=== PATIENT | male | born 1955 | race African-American/Black ===

== ENCOUNTER 2017-10-30 05:40 | Inpatient (IN) ==
[2017-10-30 07:23] LABS: Basophils # 0.1 10*3/uL (0.0-0.2); Eosinophils # 0.2 10*3/uL (0.0-0.87); Eosinophils % 2.8 % (0.00-10.9); Hematocrit 30.2 VOL% (42.0-52.0); Hemoglobin 9.4 GM/DL (14.0-18.0); Immature Granulocytes % 0.5 %; Immature Granulocytes Absolute 0.03 #; Lymphocytes % 16.7 % (21.2-54.2); Mean Corpuscular HGB Conc 31.1 GM/DL (32-36); Mean Corpuscular Hemoglobin 21 PG (27-34); Mean Corpuscular Volume 68.5 FL (87-102); Monocytes # 0.7 10*3/uL (0.11-0.8); Monocytes % 10.8 % (1.7-12.7); NRBC # 0.05 10*3/uL; Neutrophils # 4.1 10*3/uL (1.4-7.4); Neutrophils % 68.2 % (38.7-73.9); Platelet Count 170 T/CUMM (130-400); Red Blood Count 4.41 MC/CUMM (3.8-5.5); Red Cell Distribution Width 19.9 % (9.3-17.3)
[2017-10-30] MEDS ORDERED: FAMOTIDINE 20 MG TABLET PO ONE (07:29)
[2017-10-30] MEDS ORDERED: SODIUM CHLORIDE 0.9% 250 ML IV SCH (07:30)
[2017-10-30 07:49] LABS: Hypochromasia 2+; Microcytosis 2+; Polychromasia Slight; Target Cells Slight
[2017-10-30] MEDS ORDERED: FAMOTIDINE 20 MG TABLET ONE (07:49)
[2017-10-30] MEDS ORDERED: ISOSULFAN BLUE 5 ML VIAL SUBCUT ONE (07:50)
[2017-10-30] MEDS ORDERED: TISSUE ADHESIVE 1 EACH APPLICATOR TOP ONE (07:50)
[2017-10-30 07:59] LABS: Albumin 3.6 G/DL (3.4-5.0); Bilirubin,Total 0.4 MG/DL (0.2-1.0); Calcium 8.8 MG/DL (8.5-10.1); Osmolality,Calculated 285.4 MOS/KG (273-304); Potassium 3.7 MMOL/L (3.5-5.1); Total Protein 6.7 G/DL (6.4-8.3)
[2017-10-30] MEDS ORDERED: ceFAZolin 1,000 MG VIAL ONE (08:50)
[2017-10-30] MEDS ORDERED: MORPHINE 2 MG/1 ML SYRINGE IV PRN (10:15)
[2017-10-30] MEDS ORDERED: ONDANSETRON 4 MG/2 ML VIAL IV PRN (10:15)
[2017-10-30] MEDS ORDERED: SUGAMMADEX 200 MG/2 ML VIAL IV ONE (10:25)
[2017-10-30 10:44] LABS: ABG Base Excess 3.5 MMOL/L (-2.5-2.5); ABG HCO3 27.4 MMOL/L (20-26); ABG Oxygen Saturation 89.4 % (95-100); ABG PCO2 59.4 MM HG (35-48); ABG PH 7.323 (7.35-7.45); ABG PO2 66.4 MM HG (80-95); ABG TCO2 28.5 MMOL/L (23-27); Glucose Heart Surgery 142 MG/DL (74-106); Hematocrit Heart Surgery 29.5 PERCENT (42-52); Hemoglobin Heart Surgery 9.5 G/DL (14.0-18.0)
[2017-10-30] MEDS ORDERED: CALCIUM GLUCONATE 2,000 MG in SODIUM CHLORIDE 0.9% 50 ML IV ONE (10:47)
[2017-10-30] MEDS ORDERED: SEVOFLURANE 1 UNIT/15 MINUTE INH ONE (11:01)
[2017-10-30] MEDS ORDERED: PROPOFOL 200 MG/20 ML VIAL IV ONE (11:01)
[2017-10-30] MEDS ORDERED: fentaNYL 100 MCG/2 ML VIAL ONE ×2 (11:02)
[2017-10-30] MEDS ORDERED: ONDANSETRON 4 MG/2 ML VIAL ONE (11:02)
[2017-10-30] MEDS ORDERED: MIDAZOLAM 2 MG/2 ML VIAL ONE (11:02)
[2017-10-30] MEDS ORDERED: ROCURONIUM 100 MG/10 ML VIAL IV ONE (11:03)
[2017-10-30] MEDS ORDERED: NEOSTIGMINE 10 MG/10 ML VIAL ONE (11:03)
[2017-10-30] MEDS ORDERED: GLYCOPYRROLATE 0.4 MG/2 ML VIAL ONE (11:03)
[2017-10-30] MEDS ORDERED: GLUCAGON 1 MG VIAL IM PRN (12:13)
[2017-10-30] MEDS ORDERED: DEXTROSE 50% 25 GM/50 ML VIAL IV PRN (12:13)
[2017-10-31] MEDS ORDERED: CALCIUM GLUCONATE 2,000 MG in SODIUM CHLORIDE 0.9% 100 ML IV ONE ×2 (09:00→19:37)
[2017-11-01] MEDS ORDERED: CALCIUM GLUCONATE IV ONE (08:36)
[2017-11-01] MEDS ORDERED: SODIUM CHLORIDE 0.9% IV ONE (08:36)
[2017-11-01] MEDS: SEVELAMER CARBONATE 800 MG TABLET PO SCH ×2 (11:48→16:50)
[2017-11-01] MEDS: ASPIRIN EC 325 MG TABLET PO SCH (11:48)
[2017-11-01] MEDS: METOPROLOL SUCCINATE XL 100 MG TABLET PO SCH (11:48)
[2017-11-01] MEDS ORDERED: CINACALCET 30 MG TABLET PO SCH (12:00)
[2017-11-01] MEDS: glipiZIDE 10 MG TABLET PO SCH (16:50)
[2017-11-01] MEDS ORDERED: CALCIUM GLUCONATE 3,000 MG in SODIUM CHLORIDE 0.9% 100 ML IV ONE (19:36)
[2017-11-01] MEDS: GABAPENTIN 300 MG CAPSULE PO SCH (21:23)
[2017-11-01] MEDS: INSULIN GLARGINE 100 UNIT/ML SUBCUT SCH (21:23)
[2017-11-01] MEDS: cloNIDine 0.1 MG TABLET PO SCH (21:23)
[2017-11-02] MEDS ORDERED: SODIUM CHLORIDE 0.9% IV ONE (08:00)
[2017-11-02] MEDS ORDERED: CALCIUM GLUCONATE IV ONE (08:00)
[2017-11-02] MEDS: GABAPENTIN 300 MG CAPSULE PO SCH ×2 (09:05→20:50)
[2017-11-02] MEDS: glipiZIDE 10 MG TABLET PO SCH ×2 (09:05→16:53)
[2017-11-02] MEDS: ASPIRIN EC 325 MG TABLET PO SCH (09:05)
[2017-11-02] MEDS: cloNIDine 0.1 MG TABLET PO SCH ×2 (09:05→20:50)
[2017-11-02] MEDS: SEVELAMER CARBONATE 800 MG TABLET PO SCH ×3 (09:06→16:53)
[2017-11-02] MEDS: METOPROLOL SUCCINATE XL 100 MG TABLET PO SCH (09:06)
[2017-11-02] MEDS ORDERED: CALCIUM GLUCONATE 3,000 MG in SODIUM CHLORIDE 0.9% 100 ML IV ONE (19:35)
[2017-11-02] MEDS: INSULIN GLARGINE 100 UNIT/ML SUBCUT SCH (20:50)
[2017-11-03] MEDS ORDERED: CALCIUM GLUCONATE 3,000 MG in SODIUM CHLORIDE 0.9% 100 ML IV ONE (07:00)
[2017-11-03] MEDS: SEVELAMER CARBONATE 800 MG TABLET PO SCH ×3 (08:31→16:51)
[2017-11-03] MEDS: cloNIDine 0.1 MG TABLET PO SCH ×2 (08:32→22:03)
[2017-11-03] MEDS: GABAPENTIN 300 MG CAPSULE PO SCH ×2 (08:32→22:03)
[2017-11-03] MEDS: METOPROLOL SUCCINATE XL 100 MG TABLET PO SCH (08:32)
[2017-11-03] MEDS: glipiZIDE 10 MG TABLET PO SCH ×2 (08:32→16:51)
[2017-11-03] MEDS: ASPIRIN EC 325 MG TABLET PO SCH (08:33)
[2017-11-03] MEDS ORDERED: CALCITRIOL 0.5 MCG CAPSULE PO SCH ×2 (13:30→16:42)
[2017-11-03] MEDS ORDERED: CALCIUM (CARBONATE) 500 MG TABLET PO SCH (21:00)
[2017-11-03] MEDS ORDERED: CALCIUM CARBONATE CHEW 500 MG TABLET PO SCH (21:00)
[2017-11-03] MEDS: CALCIUM (CARBONATE) 500 MG TABLET PO SCH (22:04)
[2017-11-03] MEDS: INSULIN GLARGINE 100 UNIT/ML SUBCUT SCH (22:05)
[2017-11-04] MEDS ORDERED: CALCIUM GLUCONATE 2,000 MG in SODIUM CHLORIDE 0.9% 100 ML IV ONE (06:36)
[2017-11-04] MEDS: SEVELAMER CARBONATE 800 MG TABLET PO SCH ×3 (08:30→16:16)
[2017-11-04] MEDS: glipiZIDE 10 MG TABLET PO SCH ×2 (08:30→16:16)
[2017-11-04] MEDS: GABAPENTIN 300 MG CAPSULE PO SCH ×2 (08:31→22:49)
[2017-11-04] MEDS: cloNIDine 0.1 MG TABLET PO SCH ×2 (08:31→22:49)
[2017-11-04] MEDS: CALCIUM (CARBONATE) 500 MG TABLET PO SCH ×3 (08:31→22:49)
[2017-11-04] MEDS: ASPIRIN EC 325 MG TABLET PO SCH (08:32)
[2017-11-04] MEDS: METOPROLOL SUCCINATE XL 100 MG TABLET PO SCH (08:32)
[2017-11-04] MEDS ORDERED: DOXERCALCIFEROL 4 MCG/2 ML VIAL IV PRN (09:28)
[2017-11-04] MEDS: INSULIN GLARGINE 100 UNIT/ML SUBCUT SCH (22:48)
[2017-11-04] MEDS ORDERED: CALCIUM GLUCONATE 3,000 MG in SODIUM CHLORIDE 0.9% 100 ML IV ONE (22:59)
[2017-11-05] MEDS: CALCIUM (CARBONATE) 500 MG TABLET PO SCH ×5 (06:00→20:57)
[2017-11-05] MEDS ORDERED: CALCIUM GLUCONATE 2,000 MG in SODIUM CHLORIDE 0.9% 100 ML IV ONE (07:50)
[2017-11-05] MEDS: GABAPENTIN 300 MG CAPSULE PO SCH ×2 (10:36→20:58)
[2017-11-05] MEDS: cloNIDine 0.1 MG TABLET PO SCH ×3 (10:36→20:58)
[2017-11-05] MEDS: glipiZIDE 10 MG TABLET PO SCH ×2 (10:36→17:57)
[2017-11-05] MEDS: ASPIRIN EC 325 MG TABLET PO SCH ×2 (10:36→13:08)
[2017-11-05] MEDS: SEVELAMER CARBONATE 800 MG TABLET PO SCH ×4 (10:36→17:57)
[2017-11-05] MEDS: METOPROLOL SUCCINATE XL 100 MG TABLET PO SCH ×2 (10:37→13:08)
[2017-11-05] MEDS: CALCITRIOL 0.5 MCG CAPSULE PO SCH ×2 (10:37→13:07)
[2017-11-05] MEDS: INSULIN GLARGINE 100 UNIT/ML SUBCUT SCH (20:57)
[2017-11-06] MEDS: CALCIUM (CARBONATE) 500 MG TABLET PO SCH ×5 (00:45→21:08)
[2017-11-06] MEDS ORDERED: CALCIUM GLUCONATE 2,000 MG in SODIUM CHLORIDE 0.9% 100 ML IV ONE ×2 (01:00→13:30)
[2017-11-06] MEDS: SEVELAMER CARBONATE 800 MG TABLET PO SCH ×3 (08:21→17:26)
[2017-11-06] MEDS: glipiZIDE 10 MG TABLET PO SCH ×2 (08:22→17:26)
[2017-11-06] MEDS: ASPIRIN EC 325 MG TABLET PO SCH (08:22)
[2017-11-06] MEDS: METOPROLOL SUCCINATE XL 100 MG TABLET PO SCH (08:22)
[2017-11-06] MEDS: GABAPENTIN 300 MG CAPSULE PO SCH ×2 (08:22→21:07)
[2017-11-06] MEDS: CALCITRIOL 0.5 MCG CAPSULE PO SCH (08:22)
[2017-11-06] MEDS: cloNIDine 0.1 MG TABLET PO SCH ×2 (08:23→21:07)
[2017-11-06] MEDS ORDERED: DOXERCALCIFEROL 4 MCG/2 ML VIAL IV PRN (16:57)
[2017-11-06] MEDS: INSULIN GLARGINE 100 UNIT/ML SUBCUT SCH (21:06)
[2017-11-07] MEDS ORDERED: CALCIUM GLUCONATE 2,000 MG in SODIUM CHLORIDE 0.9% 100 ML IV ONE (04:00)
[2017-11-07] MEDS: METOPROLOL SUCCINATE XL 100 MG TABLET PO SCH (08:21)
[2017-11-07] MEDS: GABAPENTIN 300 MG CAPSULE PO SCH (08:21)
[2017-11-07] MEDS: ASPIRIN EC 325 MG TABLET PO SCH (08:21)
[2017-11-07] MEDS: cloNIDine 0.1 MG TABLET PO SCH ×2 (08:22→16:05)
[2017-11-07] MEDS: glipiZIDE 10 MG TABLET PO SCH ×2 (08:23→16:05)
[2017-11-07] MEDS: CALCIUM (CARBONATE) 500 MG TABLET PO SCH ×2 (08:23→16:05)
[2017-11-07] MEDS: CALCITRIOL 0.5 MCG CAPSULE PO SCH (08:23)
[2017-11-07] MEDS: SEVELAMER CARBONATE 800 MG TABLET PO SCH ×3 (08:23→16:05)
[2017-11-07 17:14] VITALS: BP 165/83
== END 2017-11-07 18:18 | disposition home or self-care (01) | DRG 674 ==
LOC: N.SDSINP 05:40 → N.OR 05:40 → N.SDSINP 05:46 → N.5E 12:02 → EDSTATUS 13:30
PROVIDERS: ADMIT Surgery; ATTEND Surgery

== ENCOUNTER 2018-04-14 16:59 | Inpatient (IN) ==
[2018-04-14 17:45] LABS: Basophils # 0.1 10*3/uL (0.0-0.2); Basophils % 0.9 % (0.0-0.8); Eosinophils # 0.1 10*3/uL (0.0-0.87); Hematocrit 31.1 VOL% (42.0-52.0); Hemoglobin 9.8 GM/DL (14.0-18.0); Immature Granulocytes % 0.7 %; Immature Granulocytes Absolute 0.04 #; Lymphocytes # 0.8 10*3/uL (1.4-4.0); Lymphocytes % 14.5 % (21.2-54.2); Mean Corpuscular HGB Conc 31.5 GM/DL (32-36); Mean Corpuscular Hemoglobin 21 PG (27-34); Mean Corpuscular Volume 67.5 FL (87-102); Monocytes # 0.6 10*3/uL (0.11-0.8); NRBC # 0.06 10*3/uL; Neutrophils # 3.8 10*3/uL (1.4-7.4); Neutrophils % 70.9 % (38.7-73.9); Platelet Count 167 T/CUMM (130-400); Red Blood Count 4.61 MC/CUMM (3.8-5.5); Red Cell Distribution Width 18.5 % (9.3-17.3); White Blood Count 5.4 T/CUMM (4-12)
[2018-04-14 18:04] LABS: Albumin 3.3 G/DL (3.4-5.0); Bilirubin,Total 0.9 MG/DL (0.2-1.0); Calcium 9.4 MG/DL (8.5-10.1); Osmolality,Calculated 305.7 MOS/KG (273-304); Potassium 4.4 MMOL/L (3.5-5.1)
[2018-04-14] MEDS ORDERED: INSULIN REGULAR 100 UNIT/ML IV STA (19:41)
[2018-04-14] MEDS ORDERED: hydrALAZINE 20 MG/1 ML VIAL IV STA (21:14)
[2018-04-14] MEDS ORDERED: hydrALAZINE 20 MG/1 ML VIAL ONE (21:15)
[2018-04-14] MEDS ORDERED: INSULIN REGULAR 100 UNIT/ML SUBCUT STA (21:21)
[2018-04-14] MEDS ORDERED: niCARdipine 25 MG/10 ML VIAL IV ONE (23:26)
[2018-04-14] MEDS: niCARdipine INJ 25 MG in SODIUM CHLORIDE 0.9% 240 ML IV PRN (23:38)
[2018-04-15] MEDS ORDERED: GLUCAGON 1 MG VIAL IM PRN (00:56)
[2018-04-15] MEDS ORDERED: DEXTROSE 50% 25 GM/50 ML VIAL IV PRN (00:56)
[2018-04-15 03:30] LABS: Apearance,Urine CLEAR (Clear); Bilirubin,Urine Negative (Negative); Blood, Urine Small mg/dL (Negative); Glucose,Urine (UA) >=500 mg/dL (Negative); Ketones,Urine Negative (Negative); Nitrite,Urine Negative (Negative); Protein,Urine 100 MG/DL; Squamous Epithelial Cell,Urine Occasional /HPF (0-10); Urine Color Straw (Yellow); Urine Specific Gravity 1.006 (1.001-1.035); Urine Urobilinogen < 2.0 EU/DL (0.2-1.0); WBC,Urine 22 /HPF (0-6)
[2018-04-15] MEDS: niCARdipine INJ 25 MG in SODIUM CHLORIDE 0.9% 240 ML IV PRN ×4 (04:02→16:32)
[2018-04-15 05:17] LABS: Basophils # 0.1 10*3/uL (0.0-0.2); Basophils % 1.1 % (0.0-0.8); Eosinophils # 0.2 10*3/uL (0.0-0.87); Eosinophils % 2.1 % (0.00-10.9); Hematocrit 32.4 VOL% (42.0-52.0); Hemoglobin 10.3 GM/DL (14.0-18.0); Immature Granulocytes % 0.9 %; Immature Granulocytes Absolute 0.07 #; Lymphocytes % 13.3 % (21.2-54.2); Mean Corpuscular HGB Conc 31.8 GM/DL (32-36); Mean Corpuscular Hemoglobin 21 PG (27-34); Mean Corpuscular Volume 67.2 FL (87-102); Monocytes # 0.8 10*3/uL (0.11-0.8); Monocytes % 10.5 % (1.7-12.7); NRBC # 0.09 10*3/uL; Neutrophils # 5.4 10*3/uL (1.4-7.4); Neutrophils % 72.1 % (38.7-73.9); Platelet Count 206 T/CUMM (130-400); Red Blood Count 4.82 MC/CUMM (3.8-5.5); Red Cell Distribution Width 18.4 % (9.3-17.3); White Blood Count 7.5 T/CUMM (4-12)
[2018-04-15 05:42] LABS: Hypochromasia 1+; Ovalocytes Slight; Platelet Estimate Adequate
[2018-04-15 05:43] LABS: Microcytosis Slight
[2018-04-15 05:51] LABS: Albumin 3.4 G/DL (3.4-5.0); Bilirubin,Total 0.8 MG/DL (0.2-1.0); Calcium 8.5 MG/DL (8.5-10.1); Osmolality,Calculated 284.8 MOS/KG (273-304); Potassium 3.6 MMOL/L (3.5-5.1)
[2018-04-15] MEDS: INSULIN REGULAR 100 UNIT/ML SUBCUT SCH ×4 (09:16→20:48)
[2018-04-15] MEDS: ASPIRIN 325 MG TABLET PO SCH (09:17)
[2018-04-15] MEDS: CILOSTAZOL 100 MG TABLET PO SCH ×2 (09:17→20:47)
[2018-04-15] MEDS: CALCITRIOL 0.5 MCG CAPSULE PO SCH (09:17)
[2018-04-15] MEDS: glipiZIDE 10 MG TABLET PO SCH ×2 (09:17→16:58)
[2018-04-15] MEDS: SEVELAMER CARBONATE 800 MG TABLET PO SCH ×3 (09:17→20:46)
[2018-04-15] MEDS: METOPROLOL SUCCINATE XL 100 MG TABLET PO SCH (09:18)
[2018-04-15] MEDS: GABAPENTIN 300 MG CAPSULE PO SCH ×2 (09:18→20:47)
[2018-04-15] MEDS: cloNIDine 0.1 MG TABLET PO SCH ×2 (09:18→20:47)
[2018-04-15] MEDS: CALCIUM (CARBONATE) 500 MG TABLET PO SCH (10:09)
[2018-04-15] MEDS ORDERED: niCARdipine 25 MG/10 ML VIAL IV ONE (11:14)
[2018-04-15] MEDS: INSULIN GLARGINE 100 UNIT/ML SUBCUT SCH (20:47)
[2018-04-15] MEDS: AMPICILLIN/SULBACTAM 1,500 MG in SODIUM CHLORIDE 0.9% 100 ML IV SCH (20:48)
[2018-04-16] MEDS: ALBUTEROL/IPRATROPIUM 3 ML NEB RESP TX SCH ×4 (00:14→20:39)
[2018-04-16 05:34] LABS: Basophils # 0.1 10*3/uL (0.0-0.2); Basophils % 0.8 % (0.0-0.8); Eosinophils # 0.2 10*3/uL (0.0-0.87); Eosinophils % 2.1 % (0.00-10.9); Hematocrit 32.4 VOL% (42.0-52.0); Hemoglobin 10.1 GM/DL (14.0-18.0); Immature Granulocytes % 0.6 %; Immature Granulocytes Absolute 0.05 #; Lymphocytes # 1.2 10*3/uL (1.4-4.0); Lymphocytes % 15.1 % (21.2-54.2); Mean Corpuscular HGB Conc 31.2 GM/DL (32-36); Mean Corpuscular Hemoglobin 21 PG (27-34); Mean Corpuscular Volume 68.4 FL (87-102); Monocytes # 0.9 10*3/uL (0.11-0.8); Monocytes % 10.9 % (1.7-12.7); NRBC # 0.16 10*3/uL; Neutrophils # 5.6 10*3/uL (1.4-7.4); Neutrophils % 70.5 % (38.7-73.9); Platelet Count 171 T/CUMM (130-400); Red Blood Count 4.74 MC/CUMM (3.8-5.5); Red Cell Distribution Width 18.4 % (9.3-17.3)
[2018-04-16 06:04] LABS: Calcium 8.8 MG/DL (8.5-10.1); Osmolality,Calculated 277.2 MOS/KG (273-304); Potassium 4.1 MMOL/L (3.5-5.1)
[2018-04-16] MEDS: SEVELAMER CARBONATE 800 MG TABLET PO SCH ×3 (08:28→21:15)
[2018-04-16] MEDS: CALCIUM (CARBONATE) 500 MG TABLET PO SCH (08:28)
[2018-04-16] MEDS: ASPIRIN 325 MG TABLET PO SCH (08:28)
[2018-04-16] MEDS: CILOSTAZOL 100 MG TABLET PO SCH ×2 (08:28→21:15)
[2018-04-16] MEDS: GABAPENTIN 300 MG CAPSULE PO SCH ×2 (08:29→21:15)
[2018-04-16] MEDS: glipiZIDE 10 MG TABLET PO SCH ×2 (08:29→17:04)
[2018-04-16] MEDS: METOPROLOL SUCCINATE XL 100 MG TABLET PO SCH (08:29)
[2018-04-16] MEDS: cloNIDine 0.1 MG TABLET PO SCH ×2 (08:29→21:15)
[2018-04-16] MEDS: INSULIN REGULAR 100 UNIT/ML SUBCUT SCH ×4 (08:30→21:23)
[2018-04-16] MEDS: AMPICILLIN/SULBACTAM 1,500 MG in SODIUM CHLORIDE 0.9% 100 ML IV SCH ×2 (08:33→21:14)
[2018-04-16] MEDS: CALCITRIOL 0.5 MCG CAPSULE PO SCH (08:40)
[2018-04-16] MEDS: INSULIN GLARGINE 100 UNIT/ML SUBCUT SCH (21:15)
[2018-04-17] MEDS: ALBUTEROL/IPRATROPIUM 3 ML NEB RESP TX SCH ×4 (00:31→19:31)
[2018-04-17 06:27] LABS: Potassium 4.3 MMOL/L (3.5-5.1)
[2018-04-17] MEDS: INSULIN REGULAR 100 UNIT/ML SUBCUT SCH ×4 (10:32→22:32)
[2018-04-17] MEDS: glipiZIDE 10 MG TABLET PO SCH ×2 (10:32→16:51)
[2018-04-17] MEDS: CALCITRIOL 0.5 MCG CAPSULE PO SCH (11:57)
[2018-04-17] MEDS: SEVELAMER CARBONATE 800 MG TABLET PO SCH ×3 (11:58→22:33)
[2018-04-17] MEDS: CILOSTAZOL 100 MG TABLET PO SCH ×2 (11:59→22:33)
[2018-04-17] MEDS: GABAPENTIN 300 MG CAPSULE PO SCH ×2 (11:59→22:33)
[2018-04-17] MEDS: CALCIUM (CARBONATE) 500 MG TABLET PO SCH (12:00)
[2018-04-17] MEDS: METOPROLOL SUCCINATE XL 100 MG TABLET PO SCH (12:02)
[2018-04-17] MEDS: ASPIRIN 325 MG TABLET PO SCH (12:03)
[2018-04-17] MEDS: cloNIDine 0.1 MG TABLET PO SCH ×2 (12:04→22:33)
[2018-04-17] MEDS: AMPICILLIN/SULBACTAM 1,500 MG in SODIUM CHLORIDE 0.9% 100 ML IV SCH ×2 (12:08→22:33)
[2018-04-17] MEDS ORDERED: cloNIDine 0.1 MG TABLET PO ONE (18:19)
[2018-04-17] MEDS ORDERED: BUTALBITAL/ACETAMIN/CAFFEINE 50-325-40 MG TABLET PO ONE (18:19)
[2018-04-17] MEDS: INSULIN GLARGINE 100 UNIT/ML SUBCUT SCH (22:32)
[2018-04-18] MEDS: ALBUTEROL/IPRATROPIUM 3 ML NEB RESP TX SCH ×2 (01:19→07:11)
[2018-04-18] MEDS: ASPIRIN 325 MG TABLET PO SCH (08:16)
[2018-04-18] MEDS: CALCIUM (CARBONATE) 500 MG TABLET PO SCH (08:16)
[2018-04-18] MEDS: CALCITRIOL 0.5 MCG CAPSULE PO SCH (08:16)
[2018-04-18] MEDS: SEVELAMER CARBONATE 800 MG TABLET PO SCH (08:16)
[2018-04-18] MEDS: GABAPENTIN 300 MG CAPSULE PO SCH (08:17)
[2018-04-18] MEDS: METOPROLOL SUCCINATE XL 100 MG TABLET PO SCH (08:17)
[2018-04-18] MEDS: cloNIDine 0.1 MG TABLET PO SCH (08:17)
[2018-04-18] MEDS: glipiZIDE 10 MG TABLET PO SCH (08:17)
[2018-04-18 09:10] VITALS: BP 190/107
[2018-04-18] MEDS: INSULIN REGULAR 100 UNIT/ML SUBCUT SCH (09:15)
[2018-04-18] MEDS: AMPICILLIN/SULBACTAM 1,500 MG in SODIUM CHLORIDE 0.9% 100 ML IV SCH (09:16)
[2018-04-18] MEDS: CILOSTAZOL 100 MG TABLET PO SCH (09:16)
== END 2018-04-18 10:22 | disposition home or self-care (01) | DRG 637 ==
LOC: N.ED 16:59 → N.EDINP 22:55 → N.TELES 04-15 01:19 → N.CC 04-15 03:50 → N.TELES 04-15 19:37
PROVIDERS: ADMIT Internal Medicine; ATTEND Internal Medicine

== ENCOUNTER 2018-06-24 11:46 | Observation (INO) ==
[2018-06-24 13:35] LABS: Basophils # 0.1 10*3/uL (0.0-0.2); Basophils % 0.7 % (0.0-0.8); Eosinophils # 0.2 10*3/uL (0.0-0.87); Eosinophils % 2.1 % (0.00-10.9); Hematocrit 35.2 VOL% (42.0-52.0); Hemoglobin 11.1 GM/DL (14.0-18.0); Immature Granulocytes % 0.8 %; Immature Granulocytes Absolute 0.06 #; Lymphocytes % 14.1 % (21.2-54.2); Mean Corpuscular HGB Conc 31.5 GM/DL (32-36); Mean Corpuscular Hemoglobin 21 PG (27-34); Mean Corpuscular Volume 66.3 FL (87-102); Monocytes # 0.9 10*3/uL (0.11-0.8); Monocytes % 11.9 % (1.7-12.7); NRBC # 0.25 10*3/uL; Neutrophils # 5.1 10*3/uL (1.4-7.4); Neutrophils % 70.4 % (38.7-73.9); Platelet Count 224 T/CUMM (130-400); Red Blood Count 5.31 MC/CUMM (3.8-5.5); White Blood Count 7.2 T/CUMM (4-12)
[2018-06-24 13:45] LABS: Albumin 3.2 G/DL (3.4-5.0); Bilirubin,Total 0.5 MG/DL (0.2-1.0); Calcium 9.8 MG/DL (8.5-10.1); Osmolality,Calculated 287.4 MOS/KG (273-304); Potassium 4.5 MMOL/L (3.5-5.1); Total Protein 7.6 G/DL (6.4-8.3)
[2018-06-24 13:51] LABS: PT Patient Result 10.6 SECS
[2018-06-24] MEDS ORDERED: ACETAMINOPHEN 325 MG TABLET PO PRN (14:25)
[2018-06-24] MEDS ORDERED: GLUCAGON 1 MG VIAL IM PRN ×2 (14:25→19:30)
[2018-06-24] MEDS ORDERED: DEXTROSE 50% 25 GM/50 ML VIAL IV PRN ×2 (14:25→19:30)
[2018-06-24] MEDS ORDERED: ONDANSETRON 4 MG/2 ML VIAL IV PRN (14:25)
[2018-06-24] MEDS ORDERED: CALCIUM ACETATE 667 MG CAPSULE PO SCH (19:30)
[2018-06-24] MEDS ORDERED: INSULIN GLARGINE 100 UNIT/ML SUBCUT SCH (21:00)
[2018-06-24] MEDS: CILOSTAZOL 100 MG TABLET PO SCH (21:24)
[2018-06-24] MEDS: GABAPENTIN 300 MG CAPSULE PO SCH (21:24)
[2018-06-24] MEDS: DOCUSATE SODIUM 100 MG CAPSULE PO SCH (21:25)
[2018-06-24] MEDS: INSULIN LISPRO 100 UNIT/ML SUBCUT SCH (21:32)
[2018-06-25 06:18] LABS: Basophils # 0.1 10*3/uL (0.0-0.2); Basophils % 0.9 % (0.0-0.8); Eosinophils # 0.2 10*3/uL (0.0-0.87); Eosinophils % 2.6 % (0.00-10.9); Hematocrit 34.4 VOL% (42.0-52.0); Hemoglobin 10.8 GM/DL (14.0-18.0); Immature Granulocytes Absolute 0.08 #; Lymphocytes # 1.2 10*3/uL (1.4-4.0); Lymphocytes % 15.5 % (21.2-54.2); Mean Corpuscular HGB Conc 31.4 GM/DL (32-36); Mean Corpuscular Hemoglobin 21 PG (27-34); Mean Corpuscular Volume 66.8 FL (87-102); Monocytes % 12.5 % (1.7-12.7); Neutrophils # 5.4 10*3/uL (1.4-7.4); Neutrophils % 67.5 % (38.7-73.9); Red Blood Count 5.15 MC/CUMM (3.8-5.5)
[2018-06-25 06:20] LABS: Platelet Count 178 T/CUMM (130-400)
[2018-06-25 06:38] LABS: Platelet Estimate Normal; Poikilocytosis 1+
[2018-06-25 06:39] LABS: Anisocytosis 3+; Macrocytosis 1+; Target Cells 1+
[2018-06-25 06:48] LABS: Osmolality,Calculated 288.4 MOS/KG (273-304); Potassium 4.2 MMOL/L (3.5-5.1)
[2018-06-25 06:57] LABS: Folate 7.4 NG/ML (5.4-24.0); Vitamin B12 > 2000 PG/ML (211-911)
[2018-06-25] MEDS: INSULIN LISPRO 100 UNIT/ML SUBCUT SCH ×3 (08:32→17:10)
[2018-06-25] MEDS: glipiZIDE 10 MG TABLET PO SCH ×2 (08:42→17:10)
[2018-06-25] MEDS: GABAPENTIN 300 MG CAPSULE PO SCH (08:43)
[2018-06-25] MEDS: DOCUSATE SODIUM 100 MG CAPSULE PO SCH (08:43)
[2018-06-25] MEDS: CILOSTAZOL 100 MG TABLET PO SCH (08:43)
[2018-06-25] MEDS: CALCIUM ACETATE 667 MG CAPSULE PO SCH ×3 (08:43→17:11)
[2018-06-25] MEDS ORDERED: METOPROLOL SUCCINATE XL 100 MG TABLET PO SCH (09:00)
[2018-06-25] MEDS ORDERED: PANTOPRAZOLE 40 MG TABLET PO SCH (09:00)
[2018-06-25] MEDS ORDERED: CYANOCOBALAMIN 500 MCG TABLET PO SCH (09:00)
[2018-06-25] MEDS ORDERED: CALCITRIOL 0.5 MCG CAPSULE PO SCH (09:00)
[2018-06-25] MEDS ORDERED: ASPIRIN 325 MG TABLET PO SCH (09:00)
[2018-06-25 15:51] LABS: Risk Ratio 2.93; VLDL CHOLESTEROL 35.4 MG/DL
[2018-06-25] MEDS ORDERED: CLOPIDOGREL 75 MG TABLET PO SCH (16:00)
[2018-06-25 16:42] VITALS: BP 181/83
[2018-06-25] MEDS ORDERED: ROSUVASTATIN 20 MG TABLET PO SCH (21:00)
== END 2018-06-25 19:13 | disposition home or self-care (01) ==
LOC: N.ED 11:46 → N.EDINP 11:46 → N.2E 15:55
PROVIDERS: ADMIT Family Medicine; ATTEND Family Medicine

== ENCOUNTER 2018-06-30 16:33 | Inpatient (IN) ==
[2018-06-30] MEDS ORDERED: MORPHINE 4 MG/1 ML VIAL ONE (16:40)
[2018-06-30] MEDS ORDERED: NITROGLYCERIN 2% OINT 1 INCH/GM PACK TOP ONE (16:41)
[2018-06-30] MEDS ORDERED: FUROSEMIDE 100 MG/10 ML VIAL ONE (16:41)
[2018-06-30] MEDS ORDERED: hydrALAZINE 20 MG/1 ML VIAL ONE (16:41)
[2018-06-30] MEDS ORDERED: MORPHINE 4 MG/1 ML VIAL IV STA (16:56)
[2018-06-30] MEDS ORDERED: NITROGLYCERIN 2% OINT 1 INCH/GM PACK TOP STA (16:56)
[2018-06-30] MEDS ORDERED: ONDANSETRON 4 MG/2 ML VIAL IV STA (16:56)
[2018-06-30] MEDS ORDERED: FUROSEMIDE 100 MG/10 ML VIAL IV STA (16:56)
[2018-06-30 17:16] LABS: Basophils % 0.1 % (0.0-0.8); Eosinophils % 0.1 % (0.00-10.9); Hematocrit 37.4 VOL% (42.0-52.0); Hemoglobin 11.6 GM/DL (14.0-18.0); Immature Granulocytes % 0.6 %; Immature Granulocytes Absolute 0.11 #; Lymphocytes # 0.5 10*3/uL (1.4-4.0); Lymphocytes % 2.8 % (21.2-54.2); Mean Corpuscular Hemoglobin 21 PG (27-34); Mean Corpuscular Volume 66.9 FL (87-102); Monocytes # 1.4 10*3/uL (0.11-0.8); NRBC # 0.03 10*3/uL; Neutrophils # 15.1 10*3/uL (1.4-7.4); Neutrophils % 88.4 % (38.7-73.9); Platelet Count 135 T/CUMM (130-400); Red Blood Count 5.59 MC/CUMM (3.8-5.5); Red Cell Distribution Width 21.1 % (9.3-17.3); White Blood Count 17.1 T/CUMM (4-12)
[2018-06-30 17:28] LABS: Lactic Acid 1.5 MMOL/L (0.4-2.0)
[2018-06-30 17:30] LABS: Alanine Aminotransferase 17 U/L (16-61); Albumin 3.4 G/DL (3.4-5.0); Alkaline Phosphatase 95 U/L (45-117); Aspartate Amino Transferase 35 U/L (0-37); Blood Urea Nitrogen 39 MG/DL (7-18); Calcium 9.7 MG/DL (8.5-10.1); Glucose 207 MG/DL (74-106); Osmolality,Calculated 284.1 MOS/KG (273-304); Potassium 5.4 MMOL/L (3.5-5.1); Sodium 135 MMOL/L (136-145)
[2018-06-30 17:32] LABS: Troponin I Only 0.055 NG/ML (0.00-0.045)
[2018-06-30] MEDS ORDERED: cefTRIAXone 1,000 MG in SODIUM CHLORIDE 0.9% 100 ML IV STA (17:36)
[2018-06-30 17:38] LABS: ABG Base Excess 4.5 MMOL/L (-2.5-2.5); ABG HCO3 28.4 MMOL/L (20-26); ABG Oxygen Saturation 95.3 % (95-100); ABG PCO2 40.4 MM HG (35-48); ABG PH 7.458 (7.35-7.45); ABG PO2 83.2 MM HG (80-95); ABG TCO2 25.3 MMOL/L (23-27)
[2018-06-30] MEDS ORDERED: cefTRIAXone 1,000 MG VIAL ONE (17:39)
[2018-06-30] MEDS ORDERED: PIPERACILLIN/TAZOBACTAM 3,375 MG in SODIUM CHLORIDE 0.9% 100 ML IV STA (17:39)
[2018-06-30 17:49] LABS: INR 1.1; PT Patient Result 11.3 SECS
[2018-06-30 18:46] LABS: Band Neutrophils 1 % (0-10); Lymphocytes 5 % (20-55); Segmented Neutrophils 85 % (50-85); Total Cells Counted 100
[2018-06-30 18:47] LABS: Anisocytosis 2+; Platelet Estimate Adequate
[2018-06-30 18:48] LABS: Elliptocytes Few; Hypochromasia 3+; Ovalocytes Few; Poikilocytosis 1+; Target Cells Few
[2018-06-30 18:49] LABS: Giant Platelets Few; Microcytosis 1+; Spherocytes Few
[2018-06-30] MEDS ORDERED: ONDANSETRON 4 MG/2 ML VIAL IV PRN (19:50)
[2018-06-30] MEDS ORDERED: hydrALAZINE 20 MG/1 ML VIAL IV PRN (19:50)
[2018-06-30] MEDS ORDERED: MORPHINE 4 MG/1 ML VIAL IV PRN (19:50)
[2018-06-30] MEDS ORDERED: GLUCAGON 1 MG VIAL IM PRN (19:50)
[2018-06-30] MEDS ORDERED: SODIUM CHLORIDE 0.9% 1,000 ML IV SCH (19:50)
[2018-06-30] MEDS ORDERED: CALCIUM ACETATE 667 MG CAPSULE PO SCH (19:50)
[2018-06-30] MEDS ORDERED: ACETAMINOPHEN 325 MG TABLET PO PRN (19:50)
[2018-06-30] MEDS ORDERED: LACTULOSE 20 GM/30 ML UDCUP PO PRN (19:50)
[2018-06-30] MEDS ORDERED: DEXTROSE 50% 25 GM/50 ML VIAL IV PRN (19:50)
[2018-06-30] MEDS: CILOSTAZOL 100 MG TABLET PO SCH (21:26)
[2018-06-30] MEDS: GABAPENTIN 300 MG CAPSULE PO SCH (21:26)
[2018-06-30] MEDS: ROSUVASTATIN 10 MG TABLET PO SCH (21:27)
[2018-06-30] MEDS: DOCUSATE SODIUM 100 MG CAPSULE PO SCH (21:27)
[2018-06-30] MEDS: INSULIN GLARGINE 100 UNIT/ML SUBCUT SCH (21:29)
[2018-06-30] MEDS: ALBUTEROL/IPRATROPIUM 3 ML NEB RESP TX SCH (23:00)
[2018-07-01] MEDS: INSULIN REGULAR 100 UNIT/ML SUBCUT SCH ×5 (00:39→20:53)
[2018-07-01 02:18] LABS: Apearance,Urine CLEAR (Clear); Bilirubin,Urine Negative (Negative); Blood, Urine Moderate mg/dL (Negative); Glucose,Urine (UA) >=500 mg/dL (Negative); Ketones,Urine Negative (Negative); Nitrite,Urine Negative (Negative); Protein,Urine 100 MG/DL; RBC,Urine <1 /HPF (0-4); Squamous Epithelial Cell,Urine Occasional /HPF (0-10); Urine Color Yellow (Yellow); Urine Specific Gravity 1.005 (1.001-1.035); Urine Urobilinogen < 2.0 EU/DL (0.2-1.0); WBC,Urine 9 /HPF (0-6)
[2018-07-01 02:21] LABS: Barbiturates Screen,Urine Negative (Negative); Benzodiazepines Screen,Urine Negative (Negative); Cannabinoid Screen,Urine Negative (Negative); Opiate Screen,Urine Negative (Negative); Phencyclidine Screen,Urine Negative (Negative)
[2018-07-01] MEDS: ALBUTEROL/IPRATROPIUM 3 ML NEB RESP TX SCH ×6 (03:30→23:57)
[2018-07-01 03:56] LABS: Basophils % 0.2 % (0.0-0.8); Eosinophils % 0.1 % (0.00-10.9); Hematocrit 33.6 VOL% (42.0-52.0); Hemoglobin 10.3 GM/DL (14.0-18.0); Immature Granulocytes % 0.6 %; Lymphocytes # 1.1 10*3/uL (1.4-4.0); Lymphocytes % 6.6 % (21.2-54.2); Mean Corpuscular HGB Conc 30.7 GM/DL (32-36); Mean Corpuscular Hemoglobin 21 PG (27-34); Mean Corpuscular Volume 66.9 FL (87-102); Monocytes # 1.6 10*3/uL (0.11-0.8); Monocytes % 10.1 % (1.7-12.7); NRBC # 0.03 10*3/uL; Neutrophils # 13.3 10*3/uL (1.4-7.4); Neutrophils % 82.4 % (38.7-73.9); Platelet Count 122 T/CUMM (130-400); Red Blood Count 5.02 MC/CUMM (3.8-5.5); White Blood Count 16.2 T/CUMM (4-12)
[2018-07-01 04:25] LABS: Bilirubin,Total 0.6 MG/DL (0.2-1.0); Calcium 9.2 MG/DL (8.5-10.1); Osmolality,Calculated 289.7 MOS/KG (273-304); Potassium 4.8 MMOL/L (3.5-5.1); Risk Ratio 1.99; Total Protein 6.8 G/DL (6.4-8.3); VLDL CHOLESTEROL 25.6 MG/DL
[2018-07-01 04:38] LABS: Hypochromasia 1+; Platelet Estimate Normal
[2018-07-01 04:39] LABS: Microcytosis Slight; Ovalocytes Few
[2018-07-01] MEDS: GABAPENTIN 300 MG CAPSULE PO SCH ×2 (08:30→20:33)
[2018-07-01] MEDS: CALCIUM ACETATE 667 MG CAPSULE PO SCH ×3 (08:30→17:23)
[2018-07-01] MEDS: CALCITRIOL 0.5 MCG CAPSULE PO SCH (08:30)
[2018-07-01] MEDS: CILOSTAZOL 100 MG TABLET PO SCH ×2 (08:30→20:34)
[2018-07-01] MEDS: glipiZIDE 10 MG TABLET PO SCH ×2 (08:31→17:53)
[2018-07-01] MEDS: CLOPIDOGREL 75 MG TABLET PO SCH (08:31)
[2018-07-01] MEDS: METOPROLOL SUCCINATE XL 100 MG TABLET PO SCH (08:31)
[2018-07-01] MEDS: FUROSEMIDE 40 MG/4 ML VIAL IV SCH ×2 (08:31→16:57)
[2018-07-01] MEDS: ASPIRIN 325 MG TABLET PO SCH (08:31)
[2018-07-01] MEDS: PANTOPRAZOLE 40 MG TABLET PO SCH (08:31)
[2018-07-01] MEDS: DOCUSATE SODIUM 100 MG CAPSULE PO SCH ×2 (08:32→20:34)
[2018-07-01] MEDS: CYANOCOBALAMIN 500 MCG TABLET PO SCH (08:33)
[2018-07-01] MEDS: cefTRIAXone 1,000 MG in SYRINGE 1 EACH IV SCH (17:55)
[2018-07-01 17:59] LABS: Hepatitis A Ab IgM Quant 0.28 Index; Hepatitis A Ab IgM Result Negative (Negative); Hepatitis B Core IgM Quant < 0.05 Index; Hepatitis B Core IgM Result Negative (Negative); Hepatitis B Surface Ag Quant 0.15 Index; Hepatitis B Surface Ag Result Negative (Negative); Hepatitis C Virus Ab Quant 0.02 Index; Hepatitis C Virus Ab Result Negative (Negative)
[2018-07-01] MEDS: ROSUVASTATIN 10 MG TABLET PO SCH (20:33)
[2018-07-01] MEDS: INSULIN GLARGINE 100 UNIT/ML SUBCUT SCH (20:52)
[2018-07-02] MEDS: ALBUTEROL/IPRATROPIUM 3 ML NEB RESP TX SCH ×6 (03:07→23:18)
[2018-07-02 05:56] LABS: Basophils % 0.3 % (0.0-0.8); Eosinophils # 0.2 10*3/uL (0.0-0.87); Eosinophils % 1.7 % (0.00-10.9); Hematocrit 32.5 VOL% (42.0-52.0); Hemoglobin 10.1 GM/DL (14.0-18.0); Immature Granulocytes % 0.5 %; Immature Granulocytes Absolute 0.05 #; Lymphocytes % 9.6 % (21.2-54.2); Mean Corpuscular HGB Conc 31.1 GM/DL (32-36); Mean Corpuscular Hemoglobin 21 PG (27-34); Mean Corpuscular Volume 67.1 FL (87-102); Monocytes # 1.3 10*3/uL (0.11-0.8); Monocytes % 13.6 % (1.7-12.7); Neutrophils # 7.3 10*3/uL (1.4-7.4); Neutrophils % 74.3 % (38.7-73.9); Platelet Count 130 T/CUMM (130-400); Red Blood Count 4.84 MC/CUMM (3.8-5.5); Red Cell Distribution Width 19.8 % (9.3-17.3); White Blood Count 9.9 T/CUMM (4-12)
[2018-07-02 06:18] LABS: Albumin 2.9 G/DL (3.4-5.0); Bilirubin,Total 0.5 MG/DL (0.2-1.0); Calcium 9.7 MG/DL (8.5-10.1); Osmolality,Calculated 284.5 MOS/KG (273-304); Total Protein 7.1 G/DL (6.4-8.3)
[2018-07-02] MEDS: INSULIN REGULAR 100 UNIT/ML SUBCUT SCH ×4 (08:11→20:44)
[2018-07-02] MEDS: CLOPIDOGREL 75 MG TABLET PO SCH (09:03)
[2018-07-02] MEDS: CALCIUM ACETATE 667 MG CAPSULE PO SCH ×3 (09:03→16:52)
[2018-07-02] MEDS: CILOSTAZOL 100 MG TABLET PO SCH ×2 (09:04→20:44)
[2018-07-02] MEDS: CALCITRIOL 0.5 MCG CAPSULE PO SCH (09:04)
[2018-07-02] MEDS: glipiZIDE 10 MG TABLET PO SCH ×2 (09:04→16:53)
[2018-07-02] MEDS: METOPROLOL SUCCINATE XL 100 MG TABLET PO SCH (09:04)
[2018-07-02] MEDS: DOCUSATE SODIUM 100 MG CAPSULE PO SCH ×2 (09:04→20:45)
[2018-07-02] MEDS: ASPIRIN 325 MG TABLET PO SCH (09:04)
[2018-07-02] MEDS: PANTOPRAZOLE 40 MG TABLET PO SCH (09:04)
[2018-07-02] MEDS: CYANOCOBALAMIN 500 MCG TABLET PO SCH (09:04)
[2018-07-02] MEDS: GABAPENTIN 300 MG CAPSULE PO SCH ×2 (09:04→20:45)
[2018-07-02] MEDS: cefTRIAXone 1,000 MG in SYRINGE 1 EACH IV SCH (16:55)
[2018-07-02] MEDS: INSULIN GLARGINE 100 UNIT/ML SUBCUT SCH (20:43)
[2018-07-02] MEDS: ROSUVASTATIN 10 MG TABLET PO SCH (20:44)
[2018-07-03] MEDS: ALBUTEROL/IPRATROPIUM 3 ML NEB RESP TX SCH ×4 (03:12→14:25)
[2018-07-03 06:29] LABS: Basophils % 0.5 % (0.0-0.8); Eosinophils # 0.2 10*3/uL (0.0-0.87); Hematocrit 31.1 VOL% (42.0-52.0); Hemoglobin 9.9 GM/DL (14.0-18.0); Immature Granulocytes % 0.8 %; Immature Granulocytes Absolute 0.06 #; Lymphocytes % 12.2 % (21.2-54.2); Mean Corpuscular HGB Conc 31.8 GM/DL (32-36); Mean Corpuscular Hemoglobin 21 PG (27-34); Mean Corpuscular Volume 65.2 FL (87-102); Monocytes % 12.9 % (1.7-12.7); Neutrophils # 5.6 10*3/uL (1.4-7.4); Neutrophils % 70.6 % (38.7-73.9); Platelet Count 158 T/CUMM (130-400); Red Blood Count 4.77 MC/CUMM (3.8-5.5); Red Cell Distribution Width 19.7 % (9.3-17.3); White Blood Count 7.9 T/CUMM (4-12)
[2018-07-03] MEDS: CYANOCOBALAMIN 500 MCG TABLET PO SCH (08:29)
[2018-07-03] MEDS: CALCITRIOL 0.5 MCG CAPSULE PO SCH (08:29)
[2018-07-03] MEDS: PANTOPRAZOLE 40 MG TABLET PO SCH (08:29)
[2018-07-03] MEDS: CLOPIDOGREL 75 MG TABLET PO SCH (08:30)
[2018-07-03] MEDS: METOPROLOL SUCCINATE XL 100 MG TABLET PO SCH (08:30)
[2018-07-03] MEDS: ASPIRIN 325 MG TABLET PO SCH (08:30)
[2018-07-03] MEDS: glipiZIDE 10 MG TABLET PO SCH (08:31)
[2018-07-03] MEDS: CILOSTAZOL 100 MG TABLET PO SCH (08:31)
[2018-07-03] MEDS: INSULIN REGULAR 100 UNIT/ML SUBCUT SCH ×2 (08:32→12:24)
[2018-07-03] MEDS: GABAPENTIN 300 MG CAPSULE PO SCH (08:32)
[2018-07-03] MEDS: DOCUSATE SODIUM 100 MG CAPSULE PO SCH (08:32)
[2018-07-03] MEDS: CALCIUM ACETATE 667 MG CAPSULE PO SCH ×2 (08:34→12:28)
[2018-07-03 14:16] VITALS: BP 141/74
== END 2018-07-03 15:03 | disposition home or self-care (01) | DRG 291 ==
LOC: EDBD → EDUNIT# → N.ED 16:33 → N.EDINP 19:15 → N.CC 19:30
PROVIDERS: ADMIT Family Medicine; ATTEND Family Medicine